=== PATIENT | female | born 1960 | race Caucasian/White ===

== ENCOUNTER 2021-11-30 10:50 | Outpatient (CLI) | payer OTHER, SELFPAY | END 2021-11-30 10:51 | disposition home or self-care (01) | LOC: ANHBWCAUD 10:51 | PROVIDERS: PCP Family Medicine; Visit Provider Nurse Practitioner | DX: H90.3 Sensorineural hearing loss, bilateral (principal) | CPT/HCPCS: 92557; 92567 ==

== ENCOUNTER 2022-02-11 09:30 | Outpatient (RCR) | payer OTHER, SELFPAY | END 2022-03-17 23:59 | disposition home or self-care (01) | LOC: ANHBWCAUD 09:30 | PROVIDERS: PCP Family Medicine; Visit Provider Nurse Practitioner | DX: Z46.1 Encounter for fitting and adjustment of hearing aid (principal) | CPT/HCPCS: 99199; V5160; V5261 ==